=== PATIENT | female | born 1955 | race Caucasian/White ===

== ENCOUNTER 2020-10-13 13:45 | Emergency (ER) | payer MEDICARE, OTHER ==
[~2020-10-13] VITALS: Ht 165.1 cm; Wt 61.2 kg
[2020-10-13] MEDS ORDERED: ONDANSETRON ODT 4 MG ONE (14:12)
[2020-10-13] MEDS ORDERED: MAALOX/HYOSCYAMINE/LIDOCAINE 45 ML BTL ONE (14:13)
[2020-10-13 14:28] LABS: BASOPHILS % (AUTO) 1 % (0-1); EOSINOPHILS % (AUTO) 1 % (1-7); LYMPHOCYTES % (AUTO) 23 % (22-44); MEAN CORPUSCULAR HEMOGLOBIN 29.5 pg (27.0-34.8); MEAN CORPUSCULAR HGB CONC 34.2 g/dL (32.4-35.8); MONOCYTES % (AUTO) 6 % (2-9); NEUTROPHILS % (AUTO) 70 % (42-75); PLATELET COUNT 237 x10^3/uL (130-400); RED BLOOD COUNT 4.85 x10^6/uL (3.82-5.3); RED CELL DISTRIBUTION WIDTH 13.7 % (9.6-15.2)
[2020-10-13] MEDS ORDERED: MAALOX/HYOSCYAMINE/LIDOCAINE 45 ML BTL PO ONE (14:30)
[2020-10-13] MEDS ORDERED: ONDANSETRON ODT 4 MG PO ONE (14:30)
[2020-10-13 14:40] LABS: ALANINE AMINOTRANSFERASE 69 U/L (12-78); ALBUMIN 3.9 g/dL (3.4-5.0); ANION GAP 8 mmol/L (5-15); CALCIUM 9.3 mg/dL (8.5-10.1); CHLORIDE 100 mmol/L (98-107); CREATININE 0.72 mg/dL (0.55-1.02)
[2020-10-13 14:43] LABS: ALKALINE PHOSPHATASE 135 U/L (45-117); BILIRUBIN,TOTAL 0.4 mg/dL (0.2-1.0); TOTAL PROTEIN 7.4 g/dL (6.4-8.2); TROPONIN I < 0.015 ng/mL (0.000-0.045)
--- NOTE | 2020-10-13 17:11 | NUR ---
PT REC'VD DISCHARGE INSTRUCTIONS AND EDUCATION. PT HAD NO FURTHER QUESTIONS. PT AMBULATED TO DC AREA, STEADY GAIT.
[2020-10-13 17:12] VITALS: BP 133/75
== END 2020-10-13 17:51 | disposition home or self-care (01) ==
LOC: ED 17:06
DX: K21.00 Gastro-esophageal reflux disease with esophagitis, without bleeding (principal); F41.1 Generalized anxiety disorder; R07.2 Precordial pain; R11.2 Nausea with vomiting, unspecified; I10 Essential (primary) hypertension; E03.9 Hypothyroidism, unspecified
CPT/HCPCS: 36415; 71045; 76705; 80053; 83690; 84484; 85025; 93005; 99285; Q0162